=== PATIENT | female | born 1955 | race Caucasian/White ===

== ENCOUNTER 2017-11-09 16:34 | Emergency (ER) | payer OTHER ==
[~2017-11-09] VITALS: Ht 165.1 cm; Wt 81.6 kg
[~2017-11-09 16:34] MED LIST: B.AN1CAP2 PO; CALC500T76 PO; MULT-820 PO
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
[2017-11-09] MEDS ORDERED: KETOROLAC 60 MG/2 ML VIAL IM ONE (17:00)
[2017-11-09] MEDS ORDERED: CYCL10TA29 PO (17:03)
[2017-11-09] MEDS ORDERED: HYDR-4309 PO (17:03)
[2017-11-09] MEDS ORDERED: NS(*) 0.9% 1000 ML BAG 1,000 ML IV ONE (17:14)
[2017-11-09] MEDS ORDERED: KETOROLAC 30 MG/ML VIAL IVP ONE (17:20)
[2017-11-09 17:21] LABS: PLATELET COUNT, AUTOMATED 194 K/uL (150-450)
[2017-11-09] MEDS ORDERED: CIPR-214 PO (17:57)
[2017-11-09] MEDS ORDERED: CIPROFLOXACIN 500 MG TAB PO ONE (18:00)
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
[2017-11-09 18:19] VITALS: BP 115/72
== END 2017-11-09 18:23 | disposition home or self-care (01) ==
LOC: ER 16:58
DX: S39.012A Strain of muscle, fascia and tendon of lower back, initial encounter (principal); N39.0 Urinary tract infection, site not specified; V43.52XA Car driver injured in collision with other type car in traffic accident, initial encounter
CPT/HCPCS: 72100; 81001; 83690; 85025; 96374; 99284; J1885; 82040; 82247; 82310; 82374; 82435; 82565; 82947; 84075; 84132; 84155; 84295; 84450; 84460; 84520

== ENCOUNTER → 2018-05-29 | Outpatient (CLI) | payer OTHER ==
[~2018-05-29] MED LIST changes: +CIPR-214 PO; +CYCL10TA29 PO; +HYDR-4309 PO
--- NOTE | 2018-05-30 15:03 | RADIOLOGY IMAGING REPORT ---
FACILITY: [facility] [place] PATIENT NAME: CECI MARROQUIN : [id number] MR: [id number] V: [id number] EXAM DATE: [id number] ORDERING PHYSICIAN: MARILEE HAMEED TECHNOLOGIST: Madelaine Sierra RDMS(ABD,OBGYN,BR),RVT PROCEDURE:US RIGHT BREAST COMPLETE COMPARISON:None. INDICATIONS:Right breast pain FINDINGS: The entire Right breast was imaged sonographically demonstrating no abnormality cystic or solid. No areas of acoustic shadowing are present. Clinical follow-up recommended for patient's Right breast pain. DIAGNOSTIC CATEGORY 1--NEGATIVE. RECOMMENDATIONS: ROUTINE MAMMOGRAM AND CLINICAL EVALUATION. CLINICAL EVALUATION. IMPRESSION: BIRADS 1: Negative. No sonographic or mammographic abnormality identified to account for patient's Right breast pain therefore clinical follow-up recommended. Dictated by: Colette Mario M.D. on 05/29/2018 at 16:46 Transcribed by: CARRIE on 05/30/2018 at 8:37 Approved by: Colette Mario M.D. on 05/30/2018 at 15:02 [facility]
--- NOTE | 2018-05-30 15:03 | RADIOLOGY IMAGING REPORT ---
FACILITY: [facility] PATIENT NAME: CECI MARROQUIN : [id number] MR: [id number] V: [id number] EXAM DATE: [id number] ORDERING PHYSICIAN: MARILEE HAMEED TECHNOLOGIST: Laurence Ramirez PROCEDURE:BILATERAL DIAGNOSTIC DIGITAL MAMMOGRAM WITH CAD ASSISTED INTERPRETATION & 3D TOMOSYNTHESIS COMPARISON:Prior mammograms 08/31/16, 01/20/16, 01/13/16, 08/21/14. INDICATIONS:Right breast pain. FINDINGS: Small amount of fibroglandular tissue is seen throughout the breasts. The parenchymal pattern has remained stable allowing for difference in mammographic technique & patient positioning. There is no evidence of malignant appearing mass, malignant appearing calcifications or other secondary sign of malignancy in either breast. Today's Right breast Ultrasound likewise revealed no abnormality therefore clinical follow-up recommended. DIAGNOSTIC CATEGORY 1--NEGATIVE. RECOMMENDATIONS: ROUTINE MAMMOGRAM AND CLINICAL EVALUATION. CLINICAL EVALUATION. IMPRESSION: BIRADS 1: Negative. No significant abnormality is identified. Clinical follow-up recommended for patient's Right breast pain. Dictated by: Colette Mario M.D. on 05/29/2018 at 16:45 Transcribed by: CARRIE on 05/30/2018 at 8:21 Approved by: Colette Mario M.D. on 05/30/2018 at 15:02 [facility]
== END ==
LOC: MAMO 02:27
PROVIDERS: ATTEND Obstetrics & Gynecology
DX: N64.4 Mastodynia (principal)
CPT/HCPCS: 77062; 77066